=== PATIENT | female | born 1960 | race Caucasian/White ===

== ENCOUNTER → 2016-12-14 | Outpatient (CLI) | payer BC ==
[~2016-12-14] MED LIST: CEFDINIR300 MG PO; CIPRO500 MG PO; COLACE100 MG PO; FLAGYL500 MG PO; KLOR-CON20 MEQ PO; NAPROSYN500 MG PO; PERCOCET 5/31 TABLET PO; PERCOCET 7.51 TABLET PO; ZOFRAN4 MG PO; ZOFRAN8 MG PO
== END | disposition home or self-care (01) ==
LOC: CDC 08:15
DX: Z01.810 Encounter for preprocedural cardiovascular examination (principal); J32.9 Chronic sinusitis, unspecified
CPT/HCPCS: 93000